=== PATIENT | female | born 1950 | race Caucasian/White ===

== ENCOUNTER 2020-06-17 18:21 | Observation (INO) ==
[2020-06-17] MEDS ORDERED: HYDROcodone/APAP 5/325MG TABLET PO ONE (18:42)
[2020-06-17] MEDS ORDERED: 0.9 % SODIUM CHLORIDE 1,000 ML IV ONE ×2 (18:42→20:17)
[2020-06-17] MEDS ORDERED: ONDANSETRON 4 MG ODT TABLET SL ONE (18:51)
--- NOTE | 2020-06-17 18:51 | Emergency Department Note ---
Fall HPI General Chief Complaint: Fall Stated Complaint: Fall Time Seen by Provider: 06/17/20 18:25 Source: patient and EMS Mode of arrival: EMS History of Present Illness HPI Narrative: Narrative: 69-year-old female with known MS fell after tripping over her cat this morning at 6:30 AM. She was getting up from the toilet when it happened. She states she briefly lost consciousness. Her tried to help her but as she developed pain in the back of her neck and her right shoulder her brought her in. She states she hurts everywhere but the pain is worst above-noted locations. She suffered a small laceration behind her right ear as well. Denies recent illness or fever, denies shortness of breath Related Data Home Medications Medication Instructions Recorded Confirmed clonazepam 2 mg PO DAILY 01/20/15 09/13/19 ondansetron 4 mg PO BID 01/20/15 09/13/19 trazodone 50 mg PO DAILY 01/20/15 06/17/20 atorvastatin 10 mg tablet 10 mg PO QPM tab 02/24/18 09/13/19 spironolactone 100 mg tablet 100 mg PO QDAY 02/24/18 09/13/19 tmnjoebxge-qbpmhbpzjmvoi-knrg 1 each PO BID 09/13/19 06/17/20 hydroxyzine HCl 25 mg PO Q4HP PRN 09/13/19 06/17/20 tizanidine 2 mg PO Q8H 09/13/19 06/17/20 bupropion HCl 150 mg PO DAILY 06/17/20 06/17/20 gabapentin 400 mg PO Q6 06/17/20 06/17/20 levothyroxine 150 mcg PO DAILY 06/17/20 06/17/20 tamsulosin 0.4 mg PO DAILY 06/17/20 06/17/20 Allergies Allergy/AdvReac Type Severity Reaction Status Date / Time dimethyl fumarate Allergy Severe FLUSHING, Verified 11/18/19 13:36 [From TECFIDERA] BREEN, hydroxyzine [HYDROXYZINE] Allergy Severe OD Verified 11/18/19 13:36 Sulfa (Sulfonamide Allergy Unknown Unknown Verified 11/18/19 13:36 Antibiotics) morphine AdvReac Agitated Verified 11/18/19 13:36 Review of Systems ROS ROS Narrative: Narrative: All systems ED: reviewed and negative except as stated. PFSH Narrative Patient History Narrative: Narrative: Medical/Surgical/Family History All Active Problems (Updated 06/17/20 @ 23:09 by Gerson Chow MD) Cellulitis (Acute) Fall (Acute) Abrasion (Acute) Fracture of head of humerus (Acute) Anterior dislocation of right shoulder (Acute) Complicated UTI (urinary tract infection) (Acute) Weakness (Acute) Acute confusion due to infection (Acute) Sleep apnea (Chronic) Port-A-Cath in place (Chronic ~2014) History of left knee replacement (Chronic) Hx of thyroid cancer (Chronic ~1984) Lack of bladder control (Chronic) History of stomach ulcers (Chronic) Muscular dystrophy (Chronic ~1989) Thyroid trouble (Chronic ~1984) Stroke (Chronic ~2016) Rheumatic fever (Chronic) Osteoporosis (Chronic) Migraines (Chronic) Joint pain (Chronic) High cholesterol (Chronic) Hypertension (Chronic) Congestive heart failure (Chronic ~2015) Depression (Chronic) Daytime sleepiness (Chronic) History of muscle pain (Chronic) Breast cancer (Chronic ~2014) Hx of blood clots (Chronic) Arthritis (Chronic) Anxiety (Chronic) Acid reflux (Chronic) Ankle sprain (Chronic) Foot sprain (Chronic) Syncope (Chronic) Upper respiratory infection (Chronic) Cough (Chronic) Insect bite (Chronic) Contusion of rib on right side (Chronic) Multiple sclerosis exacerbation (Chronic) Muscle cramping (Chronic) Viral syndrome (Chronic) Medical History Acid reflux (Chronic) Ankle sprain (Chronic) Anxiety (Chronic) Arthritis (Chronic) Breast cancer (Chronic ~2014) Congestive heart failure (Chronic ~2015) Contusion of rib on right side (Chronic) Cough (Chronic) Daytime sleepiness (Chronic) Depression (Chronic) Foot sprain (Chronic) High cholesterol (Chronic) History of muscle pain (Chronic) Chronic muscle pain. History of stomach ulcers (Chronic) Hx of blood clots (Chronic) Hx of thyroid cancer (Chronic ~1984) Hypertension (Chronic) Insect bite (Chronic) Joint pain (Chronic) Lack of bladder control (Chronic) Migraines (Chronic) Muscular dystrophy (Chronic ~1989) Osteoporosis (Chronic) Port-A-Cath in place (Chronic ~2014) Rheumatic fever (Chronic) Sleep apnea (Chronic) Stroke (Chronic ~2016) Syncope (Chronic) Thyroid trouble (Chronic ~1984) Upper respiratory infection (Chronic) Surgical History History of cholecystectomy (Chronic ~1986) History of hernia surgery (Chronic ~2000) History of hysterectomy (Chronic ~1982) History of left knee replacement (Chronic) Hx of cataract surgery (Chronic ~2004) Hx of shoulder surgery (Chronic ~2011) Hx of total mastectomy (Chronic ~2014) Family History Brother Arthritis Sister Cancer All 5 sisters have cancer. Daughter Lupus Social History Smoking Status: Current every day smoker Alcohol Intake Frequency: 2+ drinks per day Substance Use: does not use Exam Narrative Narrative: Narrative: Resting leaning more onto her left side. Conjunctive are clear sclerae white nonicteric. Extraocular movements are intact. Pupils are equal and reactive. No nasal discharge or congestion. Oropharynx with dry buccal mucosa. Tongue is midline. No dysarthria. Face is symmetrical. Neck is supple without lymphadenopathy thyromegaly. Heart is regular rate and rhythm no murmur appreciated. Lungs clear to auscultation bilaterally without wheezes rales rhonchi or respiratory distress. Abdomen soft nontender nondistended. Right shoulder exam shows tenderness really in the glenohumeral joint area anteriorly but I do not see any deformity of the shoulder arm elbow forearm. She has normal bilateral reclamation kettle tender. I do not see pedal edema. I do not see any acute focal neurologic deficits of the head or neck area There is a 4 cm long relatively superficial laceration behind her right ear. It is not full-thickness and does not require repair Course Vital Signs Vital signs: Vital Signs Temperature 100.3 F H 06/17/20 18:22 Pulse Rate 84 06/17/20 18:22 Respiratory Rate 16 06/17/20 18:22 Blood Pressure 163/93 06/17/20 18:22 Pulse Oximetry (%) 95 06/17/20 18:22 Temperature 100.3 F H 06/17/20 18:22 Pulse Rate 81 06/17/20 22:46 Respiratory Rate 18 06/17/20 22:46 Blood Pressure 179/90 06/17/20 22:46 Pulse Oximetry (%) 92 06/17/20 22:46 Procedures Orthopedic Joint Reduction Joint #1: Consent Obtained: verbal consent and written consent Time Out Performed: Yes Side: right Joint Reduction Location: shoulder Analgesia: procedural sedation Shoulder Technique Used (if applicable): traction/counter-traction and external rotation Post-reduction neuro exam: intact Post-reduction vascular: intact Post Reduction X-Ray Obtained: Yes Post Reduction X-Ray Results: reduced Splint Applied: Yes Patient Tolerated Procedure: other Additional Comments: Shoulder was unstable so required several attempts. Immobilizer applied Procedural Sedation Indication: fracture/dislocation reduction ASA Class: III Time of Last PO Intake: 16:00 Preparation: threat monitoring analyst applied, pulse oximeter, capnometry used, supplemental O2 applied, reversal agents at bedside, suction/airway equipment at bedside and IV secured Midazolam: IV Midazolam Dose: 1 Ketamine Dose: 50 IV Propofol Dose (mgs): 75 Complications: Respiratory Depression-Repositioning Required Interventions: oxygen applied and airway repositioned MDM MDM Narrative Medical decision making narrative: Narrative: We will give her some pain medicine and IV fluid. Check some laboratory and imaging. CT scan of the head and cervical spine showed no acute findings. X-ray of the right shoulder shows fracture dislocation of the humeral head. I discussed this with Dr. Sharma, orthopedist on-call and he advised me to reduce it if possible. She last ate approximately 4:00 PM and so we will have to wait till almost 10 PM so she is 6 hours without food prior to doing conscious sedation. I consented her to do a propofol Versed sedation for reduction- discussed with her the risks versus benefit Laboratory pain medicine and nausea medicine are ordered. Nursing staff got her up to go urinate on the bedside commode but she was too weak to stand-this is before getting any pain medicine. She is having some confusion as well as the weakness-concern for complicated UTI. Patient gives additional history that she is being treated with some aybv-bag-grsybrr medicine-not on antibiotic-for UTI symptoms She got some Dilaudid for pain-single dose and her oxygen saturations dropped down to 87%. I was very concerned about sedating her after this so I contacted YULIANA Hernandez on-call. He advised me to do a ketamine sedation instead of just propofol as this would be better from a respiratory standpoint We accomplished the procedural sedation and reduction of the anterior shoulder dislocation-however was difficult as the shoulder was unstable and popped out twice. Placed a shoulder immobilizer. Unfortunately the patient will need to come in because she is unable to stand, is too weak to go home. Briefly discussed with Dr. Sharma; he advised me to admit to hospitalist and he would see in the morning. Started Rocephin for UTI Discussed with Dr. Hammer, our hospitalist. He agreed to accept the patient further care and evaluation in the hospital Lab Data Lab results reviewed: Yes I reviewed the patient's lab results. Result diagrams: 06/17/20 20:23 Labs: Lab Results 06/17/20 06/17/20 06/17/20 Range/Units 20:23 20:30 20:40 WBC 10.0 (4.5-11.0) K/mcL RBC 4.38 (4.00-5.20) M/mcL Hgb 13.3 (12.0-15.0) g/dL Hct 40.9 (36.0-48.0) % POC Hct 37 (36-48) % MCV 93.4 (80.0-100.0) fL MCH 30.4 (26.0-34.0) pg MCHC 32.5 (31.0-36.0) g/dL RDW 14.9 H (11.5-14.5) % Plt Count 162 (140-440) K/mcL MPV 12.5 H (7.4-10.4) fL Neut % (Auto) 73.5 (38.0-78.0) % Lymph % (Auto) 14.4 L (15.0-49.0) % [place] % (Auto) 10.4 (1.0-12.0) % Eos % (Auto) 1.2 (0.0-7.0) % Baso % (Auto) 0.5 (0.0-2.0) % Lymph # (Auto) 1.44 L (1.50-4.80) K/mcL [place] # (Auto) 1.04 H (0.10-0.90) K/mcL Eos # (Auto) 0.12 (0.00-0.70) K/mcL Baso # (Auto) 0.05 (0.00-0.20) K/mcL Absolute Neutrophils 7.32 (1.80-8.00) K/mcL POC Sodium 139 (133-145) mEq/L POC Potassium 3.8 (3.3-5.1) mEql/L POC Chloride 106 (96-108) mEq/L POC Total CO2 24 (22-30) mmol/L POC BUN 16 (6-20) mg/dL POC Creatinine 0.6 (0.6-1.2) mg/dL POC Glucose 141 H (70-105) mg/dL POC WB Ioniz Calcium 1.15 L (1.16-1.32) mmEq/L Magnesium 1.9 (1.6-2.5) mg/dL Urine Color Martha Urine Appearance Clear (Clear) Urine pH 5.0 (5.0-9.0) Ur Specific [place] 1.018 (1.000-1.035) Urine Protein Negative (Negative) mg/dL Urine Glucose (UA) Negative (Negative) mg/dL Urine Ketones Negative (Negative) mg/dL Urine Occult Blood 0.03 (Negative) mg/dL Urine Nitrate Pos A (Negative) Urine Bilirubin Negative (Negative) mg/dL Urine Urobilinogen 2.0 A mg/dL Ur Leukocyte Esterase Negative (Negative) /ug Urine RBC 2 (0-3) /hpf Urine WBC 29 H (0-4) /hpf Ur Squamous Epith Cells 2 (0-4) /hpf Urine Bacteria Few A (0) /hpf Urine Mucus Few A (None) /hpf Ur Culture Indicated? yes Radiology Data Radiology results reviewed: Yes I reviewed the patient's radiology results. Discharge Plan Patient/Caregiver Discharge Instructions Pt seen by CARE MANAGEMENT SPECIALIST/PA only: No Clinical Impression: Abrasion, Complicated UTI (urinary tract infection), Weakness, Acute confusion due to infection Fall Qualifiers: Encounter type: initial encounter Qualified Code(s): W19.XXXA - Unspecified fall, initial encounter Fracture of head of humerus Qualifiers: Encounter type: initial encounter Fracture type: closed Laterality: right Qualified Code(s): S42.291A - Other displaced fracture of upper end of right humerus, initial encounter for closed fracture Anterior dislocation of right shoulder Qualifiers: Encounter type: initial encounter Qualified Code(s): S43.014A - Anterior dislocation of right humerus, initial encounter Patient Disposition: Xfer As Inpt ([facility]) Condition: Fair Follow up with: Travon Sharma MD [Physician] - Nadia Naik MD [Primary Care Provider] - Prescriptions: No Action spironolactone 100 mg tablet 100 mg PO QDAY RF: 0 atorvastatin 10 mg tablet 10 mg PO QPM RF: 0 ondansetron 4 MG tablet,disintegrating 4 mg PO TID RF: 0 trazodone 50 MG tablet 50 mg PO DAILY RF: 0 clonazepam 2 MG tablet,disintegrating 2 mg PO BID RF: 0 hydroxyzine HCl 50 MG tablet 25 mg PO Q4HP PRN (Reason: Anxiety) RF: 0 exsgctacfv-[id number]-oxkl 1 EACH capsule 1 each PO BID RF: 0 tizanidine 2 MG tablet 2 mg PO Q8H RF: 0 gabapentin 400 mg capsule 400 mg PO Q6 RF: 0 tamsulosin 0.4 mg capsule 0.4 mg PO DAILY RF: 0 levothyroxine 150 mcg tablet 150 mcg PO DAILY RF: 0 bupropion HCl 150 mg tablet extended release 24 hr 150 mg PO DAILY RF: 0
[2020-06-17] MEDS ORDERED: PROPOFOL 200 MG/20 ML VIAL IV ONE (19:54)
[2020-06-17] MEDS ORDERED: MIDAZOLAM 2 MG/2 ML VIAL IV ONE (19:54)
[2020-06-17] MEDS ORDERED: diphenhydrAMINE 50 MG/ML VIAL IV ONE (19:55)
[2020-06-17] MEDS ORDERED: ONDANSETRON 4 MG/2 ML VIAL IV ONE (20:17)
[2020-06-17] MEDS ORDERED: HYDROmorphone 0.5 MG/0.5 ML SYRINGE IV PRN (20:17)
[2020-06-17 20:55] LABS: POC Blood Urea Nitrogen 16 mg/dL (6-20); POC CO2 24 mmol/L (22-30); POC Calcium, Ionized 1.15 mmEq/L (1.16-1.32); POC Chloride 106 mEq/L (96-108); POC Creatinine 0.6 mg/dL (0.6-1.2); POC Glucose, Random 141 mg/dL (70-105); POC Hematocrit 37 % (36-48); POC Potassium 3.8 mEql/L (3.3-5.1); POC Sodium 139 mEq/L (133-145)
[2020-06-17 20:59] LABS: Basophils # (Auto) 0.05 K/mcL (0.00-0.20); Basophils % (Auto) 0.5 % (0.0-2.0); Eosinophils # (Auto) 0.12 K/mcL (0.00-0.70); Eosinophils % (Auto) 1.2 % (0.0-7.0); Hematocrit 40.9 % (36.0-48.0); Hemoglobin 13.3 g/dL (12.0-15.0); Lymphocytes # (Auto) 1.44 K/mcL (1.50-4.80); Lymphocytes % (Auto) 14.4 % (15.0-49.0); Mean Cell Volume 93.4 fL (80.0-100.0); Mean Corpuscular HGB Conc 32.5 g/dL (31.0-36.0); Mean Platelet Volume 12.5 fL (7.4-10.4); Monocytes # (Auto) 1.04 K/mcL (0.10-0.90); Monocytes % (Auto) 10.4 % (1.0-12.0); Neutrophils % (Auto) 73.5 % (38.0-78.0); Platelet Count 162 K/mcL (140-440); RBC 4.38 M/mcL (4.00-5.20); Red Cell Distribution Width 14.9 % (11.5-14.5)
[2020-06-17] MEDS ORDERED: KETAMINE 10 MG/ML ML IV ONE (21:51)
[2020-06-17] MEDS ORDERED: KETAMINE HCL 50 MG/ML ML ONE (22:07)
[2020-06-17 22:21] LABS: Appearance,Urine CLEAR (Clear); Bacteria,Urine FEW /hpf (0); Bilirubin,Urine Negative (Negative); Color,Urine AMBER; Culture Indicated,Urine yes; Glucose,Urine (UA) Negative (Negative); Ketones,Urine Negative (Negative); Leukocyte Esterase,Urine Negative /ug (Negative); Mucus,Urine FEW /hpf; Nitrate,Urine POS (Negative); Protein,Urine Negative (Negative); Specific Gravity,Urine 1.018 (1.000-1.035); Urine Blood 0.03 mg/dL (Negative); Urine RBC 2 /hpf (0-3); Urine Squamous Epithelial Cell 2 /hpf (0-4); Urine WBC 29 /hpf (0-4)
[2020-06-17] MEDS ORDERED: cefTRIAXone 1 GM VIAL IV ONE (22:32)
--- NOTE | 2020-06-17 23:13 | Internal Med History&Physical ---
HPI History of Present Illness Patient information: Note initiated : 06/17/20 at 11:11 pm Service Date, if different from initiated Date: [] Patient: Marlen Rodriges a 69 y/o F admitted on for Fall. Chief Complaint: [] History of present illness: Ms. Rodriges is a 69 year old F with a history of MS/anxiety/recurrent UTI/chronic pain who presented to the ER following a fall while she was trying to get off the commode. According to her the Trip to light clamp and closed the bathroom door and while trying to get off she got dizzy and landed on the bathroom hook and fell down. She called her Santino for help and was brought into the ER. Initial work-up was consistent with right shoulder fracture/dislocation. Patient underwent reduction in the ER and subsequently orthopedic was consulted. UA revealed pyuria for which she was started on antibiotics. Hospitalist service was consulted At the time of my evaluation patient is fairly anxious and in pain. She is under the effect of opioids drowsy and lethargic but was able to answer most of the questions and endorsed to history as above. She frequently dozes off but awakens response. No family members present. Initial history was obtained from review of prior medical records and from ER physician. Patient endorses to frequent spells of dizziness and visual blurring associated with MS. She denies recurrent falls endorses to general debility from progressing MS. She follows up with Dr. Joseph neurology at [facility] and receives infusion for MS All that patient denies diarrhea, fever, headache, photophobia, chills or cough. Review of systems 10 point review system was performed and is negative except for ones discussed above PFSH PFSH All Active Problems (Updated 06/17/20 @ 23:09 by Gerson Chow MD) Cellulitis (Acute) Fall (Acute) Abrasion (Acute) Fracture of head of humerus (Acute) Anterior dislocation of right shoulder (Acute) Complicated UTI (urinary tract infection) (Acute) Weakness (Acute) Acute confusion due to infection (Acute) Sleep apnea (Chronic) Port-A-Cath in place (Chronic ~2014) History of left knee replacement (Chronic) Hx of thyroid cancer (Chronic ~1984) Lack of bladder control (Chronic) History of stomach ulcers (Chronic) Muscular dystrophy (Chronic ~1989) Thyroid trouble (Chronic ~1984) Stroke (Chronic ~2016) Rheumatic fever (Chronic) Osteoporosis (Chronic) Migraines (Chronic) Joint pain (Chronic) High cholesterol (Chronic) Hypertension (Chronic) Congestive heart failure (Chronic ~2015) Depression (Chronic) Daytime sleepiness (Chronic) History of muscle pain (Chronic) Breast cancer (Chronic ~2014) Hx of blood clots (Chronic) Arthritis (Chronic) Anxiety (Chronic) Acid reflux (Chronic) Ankle sprain (Chronic) Foot sprain (Chronic) Syncope (Chronic) Upper respiratory infection (Chronic) Cough (Chronic) Insect bite (Chronic) Contusion of rib on right side (Chronic) Multiple sclerosis exacerbation (Chronic) Muscle cramping (Chronic) Viral syndrome (Chronic) Medical History Acid reflux (Chronic) Ankle sprain (Chronic) Anxiety (Chronic) Arthritis (Chronic) Breast cancer (Chronic ~2014) Congestive heart failure (Chronic ~2015) Contusion of rib on right side (Chronic) Cough (Chronic) Daytime sleepiness (Chronic) Depression (Chronic) Foot sprain (Chronic) High cholesterol (Chronic) History of muscle pain (Chronic) Chronic muscle pain. History of stomach ulcers (Chronic) Hx of blood clots (Chronic) Hx of thyroid cancer (Chronic ~1984) Hypertension (Chronic) Insect bite (Chronic) Joint pain (Chronic) Lack of bladder control (Chronic) Migraines (Chronic) Muscular dystrophy (Chronic ~1989) Osteoporosis (Chronic) Port-A-Cath in place (Chronic ~2014) Rheumatic fever (Chronic) Sleep apnea (Chronic) Stroke (Chronic ~2016) Syncope (Chronic) Thyroid trouble (Chronic ~1984) Upper respiratory infection (Chronic) Surgical History History of cholecystectomy (Chronic ~1986) History of hernia surgery (Chronic ~2000) History of hysterectomy (Chronic ~1982) History of left knee replacement (Chronic) Hx of cataract surgery (Chronic ~2004) Hx of shoulder surgery (Chronic ~2011) Hx of total mastectomy (Chronic ~2014) Family History Brother Arthritis Sister Cancer All 5 sisters have cancer. Daughter Lupus Social History (Updated 03/31/18 @ 18:08 by Olamide Sinclair RADIATION SAFETY OFFICER) marital status: smoking status: Current every day smoker alcohol intake frequency: 2+ drinks per day substance use type: does not use MEDS/ALLERGIES Home Medications and Allergies Home Medications Medication Instructions Recorded Confirmed Type clonazepam 2 mg PO BID 01/20/15 06/18/20 History ondansetron 4 mg PO TID 01/20/15 06/18/20 History trazodone 50 mg PO DAILY 01/20/15 06/18/20 History atorvastatin 10 mg tablet 10 mg PO QPM tab 02/24/18 06/18/20 History spironolactone 100 mg tablet 100 mg PO QDAY 02/24/18 06/18/20 History ngvkbkegqk-fmarakeswhdki-zwlm 1 each PO BID 09/13/19 06/18/20 History tizanidine 2 mg PO Q8H 09/13/19 06/18/20 History bupropion HCl 150 mg PO DAILY 06/17/20 06/18/20 History gabapentin 400 mg PO Q6 06/17/20 06/18/20 History levothyroxine 150 mcg PO DAILY 06/17/20 06/18/20 History tamsulosin 0.4 mg PO DAILY 06/17/20 06/18/20 History hydroxyzine HCl 10 - 20 mg PO Q4HP PRN 06/18/20 06/18/20 History Allergies Allergy/AdvReac Type Severity Reaction Status Date / Time hydroxyzine [HYDROXYZINE] Allergy Severe OD Verified 11/18/19 13:36 Sulfa (Sulfonamide Allergy Unknown Unknown Verified 11/18/19 13:36 Antibiotics) dimethyl fumarate AdvReac Intermediate FLUSHING, Verified 06/18/20 07:49 [From TECFIDERA] BREEN, morphine AdvReac Mild Agitated Verified 06/18/20 07:49 EXAM Constitutional Vitals: Temp Pulse Resp BP Pulse Ox 100.3 F H 81 18 179/90 92 06/17/20 18:22 06/17/20 22:46 06/17/20 22:46 06/17/20 22:46 06/17/20 22:46 Anxious lethargic and drowsy Head normocephalic Oral cavity moist No ear nose discharge Eye movement symmetrical Neck supple no lymphadenopathy S1-S2 regular Nonlabored breathing Nondistended nontender abdomen Right shoulder fracture in sling lower extremity no cyanosis clubbing or joint swelling Skin no suspicious lesion Psych anxious but no hallucination Neuro GCS 11 DATA Data Completed and Pending Labs: Labs from last 24 hours 06/17/20 06/17/20 06/17/20 20:40 20:30 20:23 WBC 10.0 RBC 4.38 Hgb 13.3 Hct 40.9 POC Hct 37 MCV 93.4 MCH 30.4 MCHC 32.5 RDW 14.9 H Plt Count 162 MPV 12.5 H Neut % (Auto) 73.5 Lymph % (Auto) 14.4 L [place] % (Auto) 10.4 Eos % (Auto) 1.2 Baso % (Auto) 0.5 Lymph # (Auto) 1.44 L [place] # (Auto) 1.04 H Eos # (Auto) 0.12 Baso # (Auto) 0.05 Absolute Neutrophils 7.32 POC Sodium 139 POC Potassium 3.8 POC Chloride 106 POC Total CO2 24 POC BUN 16 POC Creatinine 0.6 POC Glucose 141 H POC WB Ioniz Calcium 1.15 L Magnesium 1.9 Urine Color [place] Urine Appearance Clear Urine pH 5.0 Ur Specific [place] 1.018 Urine Protein Negative Urine Glucose (UA) Negative Urine Ketones Negative Urine Occult Blood 0.03 Urine Nitrate Pos A Urine Bilirubin Negative Urine Urobilinogen 2.0 A Ur Leukocyte Esterase Negative Urine RBC 2 Urine WBC 29 H Ur Squamous Epith Cells 2 Urine Bacteria Few A Urine Mucus Few A Ur Culture Indicated? yes A/P Narrative A/P Narrative: * Right humerus fracture/dislocation. Status post reduction. Orthopedic consulted. Will undergo additional interventions per orthopedics * Pain management on as needed opioids * Complicated UTI-continue antibiotic coverage. De-escalate based on cultures * AMS-secondary to complicated UTI/opioid and sedatives. Continue monitoring * History of MS-follows up with Dr. Mar neurology. On tizanidine/gabapentin and schedule infusions as scheduled with neurology * HTN-continue home dose of spironolactone * Anxiety continue bupropion/clonazepam * Hypothyroidism continue thyroxine * HLD on statin * Full code * Prophylaxis Heparin Plan * Observation admit * Orthopedic consult * Antibiotic coverage * Pain management * Pre-existing medical issues management home medications * PT OT nutrition support * Discharge planning PLAN * Obs Admit Time Spent With Patient Time: Total time spent is greater than 50% in coordination of care (as documented) at patient's floor/unit and/or counseling patient:
[2020-06-18] MEDS ORDERED: POTASSIUM CHLORIDE 40 MEQ in DEXTROSE 5% IN WATER 500 ML IV PRN (00:39)
[2020-06-18] MEDS ORDERED: ACETAMINOPHEN 650 MG/65 ML BAG IV PRN (00:39)
[2020-06-18] MEDS ORDERED: ONDANSETRON 4 MG/2 ML VIAL IV PRN (00:39)
[2020-06-18] MEDS ORDERED: POLYETHYLENE GLYCOL 3350 17 GM PACKET PO PRN (00:39)
[2020-06-18] MEDS ORDERED: ACETAMINOPHEN 325 MG TABLET PO PRN (00:39)
[2020-06-18] MEDS ORDERED: ONDANSETRON 4 MG ODT TABLET SL PRN (00:39)
[2020-06-18] MEDS ORDERED: TIZANIDINE 2 MG PO SCH (00:39)
[2020-06-18] MEDS ORDERED: HYDROXYZINE HCL 25 MG PO PRN (00:39)
[2020-06-18] MEDS ORDERED: METOPROLOL TARTRATE 5 MG/5 ML VIAL IV PRN (00:39)
[2020-06-18] MEDS ORDERED: MAGNESIUM SULFATE 2 GM/50 ML BAG IV PRN (00:39)
[2020-06-18] MEDS ORDERED: MELATONIN 3 MG TABLET PO PRN (00:39)
[2020-06-18] MEDS ORDERED: POTASSIUM CHLORIDE 20 MEQ PACKET PO PRN (00:39)
[2020-06-18] MEDS ORDERED: hydrALAZINE 20 MG/ML VIAL IV PRN (00:39)
[2020-06-18] MEDS ORDERED: cefTRIAXone 2 GM in DEXTROSE 5% IN WATER 50 ML IV SCH ×2 (00:39→16:00)
[2020-06-18] MEDS ORDERED: BISACODYL 10 MG SUPP.RECT PR PRN (00:39)
[2020-06-18] MEDS: 0.9 % SODIUM CHLORIDE 1,000 ML IV SCH ×2 (00:40→06:12)
[2020-06-18] MEDS ORDERED: GABAPENTIN 300 MG CAPSULE ONE (01:09)
[2020-06-18] MEDS ORDERED: GABAPENTIN 100 MG CAPSULE PO ONE (01:09)
[2020-06-18] MEDS ORDERED: cefTRIAXone 1 GM VIAL ONE (01:10)
[2020-06-18] MEDS: GABAPENTIN 400 MG CAPSULE PO SCH ×3 (01:12→12:57)
[2020-06-18] MEDS ORDERED: 0.9 % SODIUM CHLORIDE 10 ML SYRINGE IV SCH (06:00)
[2020-06-18] MEDS: HYDROmorphone 0.5 MG/0.5 ML SYRINGE IV PRN ×2 (06:13→08:54)
[2020-06-18] MEDS ORDERED: HYDROmorphone 0.5 MG/0.5 ML SYRINGE ONE (06:24)
[2020-06-18 06:45] LABS: Basophils # (Auto) 0.04 K/mcL (0.00-0.20); Basophils % (Auto) 0.4 % (0.0-2.0); Eosinophils % (Auto) 1.1 % (0.0-7.0); Hematocrit 35.1 % (36.0-48.0); Hemoglobin 11.3 g/dL (12.0-15.0); Lymphocytes # (Auto) 2.07 K/mcL (1.50-4.80); Lymphocytes % (Auto) 22.8 % (15.0-49.0); Mean Cell Volume 92.6 fL (80.0-100.0); Mean Corpuscular HGB Conc 32.2 g/dL (31.0-36.0); Mean Platelet Volume 12.5 fL (7.4-10.4); Monocytes # (Auto) 1.32 K/mcL (0.10-0.90); Monocytes % (Auto) 14.5 % (1.0-12.0); Neutrophils % (Auto) 61.2 % (38.0-78.0); Platelet Count 143 K/mcL (140-440); RBC 3.79 M/mcL (4.00-5.20); Red Cell Distribution Width 14.9 % (11.5-14.5); WBC 9.1 K/mcL (4.5-11.0)
[2020-06-18 07:16] LABS: ALT/SGPT 8 U/L (<40); AST/SGOT 15 U/L (<32); Albumin 3.8 gm/dL (3.2-5.2); Albumin/Globulin Ratio 1.8 (1.0-2.3); Alkaline Phosphatase 106 U/L (39-117); Bilirubin,Direct < 0.2 mg/dL (<0.3); Bilirubin,Total 0.4 mg/dL (0.1-1.0); Blood Urea Nitrogen 12 mg/dL (8-23); Calcium 8.8 mg/dL (8.6-10.4); Carbon Dioxide 24 mmol/L (22-30); Chloride 101 mmol/L (96-108); Globulin 2.1 gm/dL (2.2-3.7); Glomerular Filtration Rate 94; Glucose 121 mg/dL (70-105); Lactate Dehydrogenase 186 U/L (135-225); Phosphorous 2.6 mg/dL (2.5-4.5); Triglycerides 56 mg/dL (<150); Uric Acid 3.9 mg/dL (2.5-8.0)
[2020-06-18] MEDS ORDERED: LEVOTHYROXINE 150 MCG TABLET PO SCH (07:30)
--- NOTE | 2020-06-18 08:20 | Internal Med Progress Note ---
SUBJECTIVE Subjective Patient information: Note initiated : 06/18/20 at 8:17 am Service Date, if different from initiated Date: [] Patient: Marlen Rodriges a 69 y/o F admitted on 06/18/20 for Fall. Chief Complaint: [] Ms. Rodriges is a 69 year old F with a history of MS/anxiety/recurrent UTI/chronic pain who presented to the ER following a fall while she was trying to get off the commode. According to her the Trip to light clamp and closed the bathroom door and while trying to get off she got dizzy and landed on the bathroom hook and fell down. She called her Santino for help and was brought into the ER. Initial work-up was consistent with right shoulder fracture/dislocation. Patient u nderwent reduction in the ER and subsequently orthopedic was consulted. UA revealed pyuria for which she was started on antibiotics. Hospitalist service was consulted At the time of my evaluation patient is fairly anxious and in pain. She is under the effect of opioids drowsy and lethargic but was able to answer most of the questions and endorsed to history as above. She frequently dozes off but awakens response. No family members present. Initial history was obtained from review of prior medical records and from ER physician. Patient endorses to frequent spells of dizziness and visual blurring associated with MS. She denies recurrent falls endorses to general debility from progress ing MS. She follows up with Dr. Joseph neurology at [facility] and receives infusion for MS All that patient denies diarrhea, fever, headache, photophobia, chills or cough. 1/2-no overnight events. Patient doing well. Pain is well controlled. Await orthopedic consult. Minimal anxiety. Requesting bedside commode. Reaffirmed that she should call nursing staff and avoid getting out of bed without assistance due to fall risk and subsequent injuries. Constitutional Vitals: Vital Signs Temp Pulse Resp BP Pulse Ox 99.7 F H 98 H 18 138/77 90 06/18/20 08:00 06/18/20 08:00 06/18/20 08:00 06/18/20 08:00 06/18/20 08:00 Period Temp Pulse Resp BP Sys/Lou Pulse Ox Last 24 Hr 98.3 F-100.3 F 74-98 10-28 125-202/68-131 90-96 Intake and Output 01/01/21 01/02/21 01/02/21 21:59 05:59 13:59 Intake Total 1000 1000 950 Output Total 201 201 Balance 1000 799 749 Weight 60.328 kg drowsy but respond to commands Nonlabored breathing Minimal anxiety Right shoulder sling Intake & Output: Intake & Output 06/17/20 06/18/20 06/18/20 21:59 05:59 13:59 Intake Total 1000 1000 950 Output Total 201 201 Balance 1000 799 749 Weight 60.328 kg Intake: IV 1000 1000 950 Sodium Chloride 0.9% 1,000 ml @ 1000 1000 950 50 mls/hr IV .Q20H NILDA Rx#: [id number] Oral 0 Output: Void Amount 200 200 # of times incontinent of urine 1 1 Other: Urine Appearance Cloudy Cloudy Urine Color Light Martha Light Martha Urine Odor Foul Foul OBJ DATA Labs CBC & Chem 7: 06/18/20 05:37 06/18/20 05:37 Labs: Abnormal Lab Results 06/18/20 06/18/20 06/17/20 05:37 05:37 20:40 RBC 3.79 L Hgb 11.3 L Hct 35.1 L RDW 14.9 H MPV 12.5 H Lymph % (Auto) [place] % (Auto) 14.5 H Lymph # (Auto) [place] # (Auto) 1.32 H Glucose 121 H POC Glucose 141 H POC WB Ioniz Calcium 1.15 L Globulin 2.1 L Urine Nitrate Urine Urobilinogen Urine WBC Urine Bacteria Urine Mucus 06/17/20 06/17/20 20:30 20:23 RBC Hgb Hct RDW 14.9 H MPV 12.5 H Lymph % (Auto) 14.4 L [place] % (Auto) Lymph # (Auto) 1.44 L [place] # (Auto) 1.04 H Glucose POC Glucose POC WB Ioniz Calcium Globulin Urine Nitrate Pos A Urine Urobilinogen 2.0 A Urine WBC 29 H Urine Bacteria Few A Urine Mucus Few A Meds: Medications Acetaminophen (Tylenol) 650 mg PO Q4-6HP PRN; Protocol PRN Reason: Per Pain Protocol/Fever > 101 Acetaminophen/Butalbital/Caffeine (Fioricet) 1 tab PO BID [facility] Atorvastatin Calcium (Lipitor) 10 mg PO QPM NILDA Bisacodyl (Dulcolax) 10 mg HI Q2-3DAYS PRN PRN Reason: Constipation Bupropion HCl (Wellbutrin Xl) 150 mg PO DAILY [facility] Clonazepam (Klonopin) 2 mg PO BID [facility] Docusate Sodium (Colace) 100 mg PO BID [facility] Gabapentin (Neurontin) 400 mg PO Q6 [facility] Last Admin: 06/18/20 01:12 Dose: Not Given Documented by: Heparin Sodium (Porcine) (Heparin) 5,000 unit SQ Q12 [facility] Hydralazine HCl (Apresoline) 10 mg IV Q4-6HP PRN PRN Reason: Hypertension Hydromorphone HCl (Dilaudid) 0.25 - 0.5 mg IV Q4HP PRN; Protocol PRN Reason: Per Pain Protocol Last Admin: 06/18/20 06:13 Dose: 0.5 mg Documented by: Potassium Chloride 40 meq/ (Dextrose) 520 mls @ 130 mls/hr IV UD PRN PRN Reason: K+ = or < 3.5 Acetaminophen (Ofirmev) 650 mg in 65 mls @ 130 mls/hr IV Q6HP PRN; Protocol PRN Reason: Per Pain Protocol/Fever > 101 Magnesium Sulfate (Magnesium Sulfate) 2 gm in 50 mls @ 50 mls/hr IV UD PRN PRN Reason: MG = or < 1.7 Sodium Chloride (Sodium Chloride 0.9%) 1,000 mls @ 50 mls/hr IV .Q20H [facility] Stop: 06/20/20 12:38 Last Admin: 06/18/20 06:12 Dose: 50 mls/hr Documented by: Ceftriaxone Sodium 2 gm/ (Dextrose) 50 mls @ 100 mls/hr IV Q24H [facility]; Protocol Iron Carb/Multivit/[place]/Folic Acid (Multivitamin W/Minerals) 1 tab PO DAILY [facility] Levothyroxine Sodium (Synthroid) 150 mcg PO QAMAC [facility] Melatonin (Melatonin 3mg Tablet) 3 mg PO HSP PRN PRN Reason: Insomnia Metoprolol Tartrate (Lopressor) 5 mg IV Q5M PRN PRN Reason: Heart Rate > 140 bpm Non-Formulary Medication (Hydroxyzine Hcl) 25 mg PO Q4HP PRN PRN Reason: Anxiety Ondansetron HCl (Zofran Odt) 4 mg SL Q4-6HP PRN; Protocol PRN Reason: Nausea And Vomiting Ondansetron HCl (Zofran) 4 mg IV Q4-6HP PRN; Protocol PRN Reason: Nausea And Vomiting Polyethylene Glycol (Miralax) 17 gm PO DAILYP PRN PRN Reason: Constipation Potassium Chloride (Klor-Con) 40 meq PO DAILYP PRN PRN Reason: K+ < 3.5 Senna/Docusate Sodium (Senna Plus Tablet) 1 tab PO HS [facility] Sodium Chloride (Saline Flush) 10 ml IV Q8 [facility] Last Admin: 06/18/20 06:14 Dose: Not Given Documented by: Spironolactone (Aldactone) 100 mg PO DAILY [facility] Tamsulosin HCl (Flomax) 0.4 mg PO DAILY [facility] Tizanidine HCl (Zanaflex) 2 mg PO TID NILDA Trazodone HCl (Desyrel) 50 mg PO DAILY [facility] A/P Narrative A/P Narrative: * Right humerus fracture/dislocation. Status post reduction. Orthopedic consult awaited this morning. Will undergo additional interventions per orthopedics * Pain management well controlled on as needed opioids * Complicated UTI-continue Rocephin and de-escalate based on cultures * AMS-secondary to complicated UTI/opioid and sedatives. Continue monitoring * History of MS-follows up with Dr. Mar neurology. On tizanidine/gabapentin and schedule infusions as scheduled with neurology * HTN-continue home dose of spironolactone * Anxiety continue bupropion/clonazepam * Hypothyroidism continue thyroxine * HLD on statin * Full code * Prophylaxis Heparin Plan * Await orthopedic consult * Rocephin * Continue pain management * Continue pre-existing medical issues management home medications * PT OT nutrition support * Discharge planning PLAN * Obs Admit Time Spent With Patient Time: Total time spent is greater than 50% in coordination of care (as documented) at patient's floor/unit and/or counseling patient: QUALITY Stroke Symptom Onset Unknown: No VTE Deep Vein Thrombosis/Pulmonary Embolism Present on Admission: No
[2020-06-18] MEDS ORDERED: SPIRONOLACTONE 25 MG TABLET PO SCH (09:00)
[2020-06-18] MEDS ORDERED: MULTIVIT,THER IRON,CA,FA & MIN 1 TABLET PO SCH (09:00)
[2020-06-18] MEDS ORDERED: buPROPion 150 MG TAB.XL.24H PO SCH (09:00)
[2020-06-18] MEDS ORDERED: tiZANidine 4 MG TABLET PO SCH (09:00)
[2020-06-18] MEDS ORDERED: BUTALB/ACETAMINOPHEN/CAFFEINE 1 TABLET PO SCH (09:00)
[2020-06-18] MEDS ORDERED: DOCUSATE SODIUM 100 MG CAPSULE PO SCH (09:00)
[2020-06-18] MEDS ORDERED: TAMSULOSIN 0.4 MG CAPSULE PO SCH (09:00)
[2020-06-18] MEDS ORDERED: ONDANSETRON (PP) 4 MG TABLET PO SCH (09:00)
[2020-06-18] MEDS ORDERED: HEPARIN 5,000 UNIT/ML VIAL SQ SCH (09:00)
[2020-06-18] MEDS ORDERED: clonazePAM 1 MG TABLET PO SCH (09:00)
[2020-06-18] MEDS ORDERED: traZODone HCL 50 MG TABLET PO SCH (09:00)
--- NOTE | 2020-06-18 09:14 | XRay Report ---
HISTORY: Fell with right shoulder injury FINDINGS: The humeral head is dislocated anteriorly and medially. There is a comminuted fracture involving the tuberosities. The tuberosities are displaced laterally and inferiorly. The scapula appears intact. The right lung is clear. There is a Port-A-Cath placed through the right internal jugular vein into the superior vena cava. IMPRESSION: Anterior fracture dislocation of the right humerus Interpreted and Authenticated by: Tommie Starks 06/18/20
--- NOTE | 2020-06-18 09:18 | Cat Scan Report ---
History: Fell, head injury, prior stroke, multiple sclerosis and history of thyroid cancer TECHNIQUE: The brain was imaged without contrast at 2.5 mm intervals. Radiation exposure was limited using dose reduction technology. FINDINGS: There is moderate white matter disease with patchy areas of decreased attenuation in the centrum semiovale in the frontal and parietal lobes bilaterally. There are small old lacunar infarcts with encephalomalacia involving the head of the right caudate nucleus and mid body of the left caudate nucleus. No cortical infarct is detected. There is no hemorrhage and no evidence of malignancy on this nonenhanced study. Patient has generalized atrophy. The ventricles are prominent but proportionate to the atrophy. No abnormal extra-axial fluid collection is present. Bone windows show no fracture or metastasis. Comparison with the prior head CT done on 01/16/13 shows there has been progression of the atrophy, white matter disease and the lacunar infarcts were not present in 2012. IMPRESSION: Small old lacunar infarcts in the caudate nuclei bilaterally Moderate white matter disease which could be due to age-related ischemia or degeneration, multiple sclerosis or a combination of the two. No evidence of acute brain injury Dr. Chow was called with the results Interpreted and Authenticated by: Tommie Starks 06/18/20
--- NOTE | 2020-06-18 09:23 | Cat Scan Report ---
History: Fell and neck injury TECHNIQUE: The neck was imaged without contrast at 2.5 mm intervals from the skull base through the thoracic inlet. Sagittal and coronal reformats were created. The radiation exposure was limited using dose reduction technology. FINDINGS: The cervico-occipital junction is normal. There is no fracture or evidence of acute spinal injury. There is chronic advanced degenerative changes. Severe disc space narrowing is present at C5-6 and there is moderately severe disc space narrowing at C4-5 and C6-7. There are spurs protruding into the central canal from the posterior border of the discs at C5-6 and C6-7 resulting in moderate spinal canal stenosis. There is also spurring of the uncinate processes and arthritis in the facets throughout the mid and lower neck. There is severe stenosis of the right-sided neural foramen at C6-7 and bilaterally at C5-6. There is no paraspinal mass or hematoma. Patient has a central venous catheter placed through the right internal jugular vein extending into the superior vena cava. IMPRESSION: No fracture Spinal canal stenosis and neural foraminal stenosis at C5-6 and C6-7 Dr. Chow was called with results Interpreted and Authenticated by: Tommie Starks 06/18/20
--- NOTE | 2020-06-18 09:27 | XRay Report ---
HISTORY: Post reduction of dislocated right shoulder FINDINGS: The humeral head is now normally aligned with the glenoid. The fractured tuberosities are now in closer alignment with the humerus but remain rotated and displaced inferiorly and laterally. There is mild arthritis with small spurs on both sides of the glenohumeral joint The acromioclavicular joint is normal. IMPRESSION: Good alignment of the humerus with the glenoid following closed reduction Interpreted and Authenticated by: Tommie Starks 06/18/20
--- NOTE | 2020-06-18 11:53 | Discharge Summary ---
Discharge Provider Provider Patient information: Note initiated : 06/18/20 at 11:50 am Service Date, if different from initiated Date: [] Patient: Marlen Rodriges a 69 y/o F admitted on 06/18/20 for Fall. discharge diagnosis * Right humerus fracture/dislocation. Status post reduction. Orthopedics recommend surgical intervention on Saturday. Patient will return for surgery. * Pain management managed on opioids * Complicated UTI-continue oral antibiotic for additional 5 days * AMS-secondary to complicated UTI/opioid and sedatives. Clinically resolved * History of MS-follows up with Dr. Mar neurology. On tizanidine/gabapentin and schedule infusions as scheduled with neurology * HTN-continue home dose of spironolactone * Anxiety continue bupropion/clonazepam * Hypothyroidism continue thyroxine * HLD on statin Brief hospital course Ms. Rodriges is a 69 year old F with a history of MS/anxiety/recurrent UTI/chronic pain who presented to the ER following a fall while she was trying to get off the commode. According to her the Trip to light clamp and closed the bathroom door and while trying to get off she got dizzy and landed on the bathroom hook and fell down. She called her Santino for help and was brought into the ER. Initial w ork-up was consistent with right shoulder fracture/dislocation. Patient underwent reduction in the ER and subsequently orthopedic was consulted. UA revealed pyuria for which she was started on antibiotics. Hospitalist service was consulted At the time of my evaluation patient is fairly anxious and in pain. She is under the effect of opioids drowsy and lethargic but was able to answer most of the questions and endorsed to history as above. She frequently dozes off but awakens response. No family members present. Initial history was obtained from review of prior medical records and from ER physician. Patient endorses to frequent spells of dizziness and visual blurring associated with MS. She denies recurrent falls endorses to general debility from progressing MS. She follows up with Dr. Joseph neurology at [facility] and receives infusion for MS All that patient denies diarrhea, fever, headache, photophobia, chills or cough. 1/2-no overnight events. Patient doing well. Pain is well controlled. Await orthopedic consult. Minimal anxiety. Requesting bedside commode. Reaffirmed that she should call nursing staff and avoid getting out of bed without assistance due to fall risk and subsequent injuries. Case discussed with Dr. Sharma orthopedics. Recommends discharging in returning on Saturday for operative interventions. Patient was discharged home on oral antibiotic for urine tract infection. Patient feels comfortable and requesting to be discharged. She will follow up with orthopedics and will present to the hospital on Saturday for surgery. Date of admission: 06/18/20 00:01 Discharge date: 06/18/20 Primary care physician: Nadia Naik Consults: 06/17/20 Consult to Physician [CONS] Stat Comment: Consulting Provider: Andrade Sanchez Reason For Exam: Physician to Consult Consult to Physician [CONS] Stat Comment: Consulting Provider: Travon Sharma Reason For Exam: Physician to Consult Discharge Meds Discharge Medications Home Medications clonazepam 2 mg PO BID 01/20/15 [History Confirmed 06/18/20 Last Taken 06/17/20 2 mg] ondansetron 4 mg PO TID 01/20/15 [History Confirmed 06/18/20 Last Taken 06/17/20 4 mg] trazodone 50 mg PO DAILY 01/20/15 [History Confirmed 06/18/20 Last Taken 06/16/20 50 mg] atorvastatin 10 mg tablet 10 mg PO QPM tab 02/24/18 [History Confirmed 06/18/20 Last Taken 06/16/20 10 mg] spironolactone 100 mg tablet 100 mg PO QDAY 02/24/18 [History Confirmed 06/18/20 Last Taken 06/17/20 100 mg] [id number] 1 each PO BID 09/13/19 [History Confirmed 06/18/20 Last Taken 06/17/20 1 Tablet] tizanidine 2 mg PO Q8H 09/13/19 [History Confirmed 06/18/20 Last Taken 06/17/20 2 mg] bupropion HCl 150 mg PO DAILY 06/17/20 [History Confirmed 06/18/20 Last Taken 06/17/20 150 mg] gabapentin 400 mg PO Q6 06/17/20 [History Confirmed 06/18/20 Last Taken 06/17/20 400 MG] levothyroxine 150 mcg PO DAILY 06/17/20 [History Confirmed 06/18/20 Last Taken 06/17/20 150 mcg] tamsulosin 0.4 mg PO DAILY 06/17/20 [History Confirmed 06/18/20 Last Taken 06/17/20 0.4 mg] cefdinir 300 mg PO BID #10 cap 06/18/20 [Rx Last Taken Unknown] hydroxyzine HCl 10 - 20 mg PO Q4HP PRN 06/18/20 [History Confirmed 06/18/20 Last Taken 06/17/20 10 mg] COURSE Hospital Course Hospital course: . Discharge diagnosis: . Time Spent with Patient Time attestation: Total time spent providing and/or coordinating discharge services: EXAM Constitutional Vitals: Temp Pulse Resp BP Pulse Ox 99.7 F H 98 H 18 138/77 90 06/18/20 08:00 06/18/20 08:00 06/18/20 08:00 06/18/20 08:00 06/18/20 08:00 Discharge Data Data Completed and Pending Labs on day of discharge: Labs from last 24 hours 06/18/20 06/18/20 06/17/20 05:37 05:37 20:40 WBC 9.1 RBC 3.79 L Hgb 11.3 L Hct 35.1 L POC Hct 37 MCV 92.6 MCH 29.8 MCHC 32.2 RDW 14.9 H Plt Count 143 MPV 12.5 H Neut % (Auto) 61.2 Lymph % (Auto) 22.8 [place] % (Auto) 14.5 H Eos % (Auto) 1.1 Baso % (Auto) 0.4 Lymph # (Auto) 2.07 [place] # (Auto) 1.32 H Eos # (Auto) 0.10 Baso # (Auto) 0.04 Absolute Neutrophils 5.55 POC Sodium 139 Sodium 136 POC Potassium 3.8 Potassium 3.8 POC Chloride 106 Chloride 101 Carbon Dioxide 24 POC Total CO2 24 Anion Gap 11.0 POC BUN 16 BUN 12 Creatinine 0.6 POC Creatinine 0.6 GFR Calculation 94 Glucose 121 H POC Glucose 141 H Uric Acid 3.9 Calcium 8.8 POC WB Ioniz Calcium 1.15 L Phosphorus 2.6 Magnesium 1.7 1.9 Total Bilirubin 0.4 Direct Bilirubin < 0.2 GGT 12 AST 15 ALT 8 Alkaline Phosphatase 106 Lactate Dehydrogenase 186 Total Protein 5.9 Albumin 3.8 Globulin 2.1 L Albumin/Globulin Ratio 1.8 Triglycerides 56 Urine Color Urine Appearance Urine pH Ur Specific [place] Urine Protein Urine Glucose (UA) Urine Ketones Urine Occult Blood Urine Nitrate Urine Bilirubin Urine Urobilinogen Ur Leukocyte Esterase Urine RBC Urine WBC Ur Squamous Epith Cells Urine Bacteria Urine Mucus Ur Culture Indicated? 06/17/20 06/17/20 20:30 20:23 WBC 10.0 RBC 4.38 Hgb 13.3 Hct 40.9 POC Hct MCV 93.4 MCH 30.4 MCHC 32.5 RDW 14.9 H Plt Count 162 MPV 12.5 H Neut % (Auto) 73.5 Lymph % (Auto) 14.4 L [place] % (Auto) 10.4 Eos % (Auto) 1.2 Baso % (Auto) 0.5 Lymph # (Auto) 1.44 L [place] # (Auto) 1.04 H Eos # (Auto) 0.12 Baso # (Auto) 0.05 Absolute Neutrophils 7.32 POC Sodium Sodium POC Potassium Potassium POC Chloride Chloride Carbon Dioxide POC Total CO2 Anion Gap POC BUN BUN Creatinine POC Creatinine GFR Calculation Glucose POC Glucose Uric Acid Calcium POC WB Ioniz Calcium Phosphorus Magnesium Total Bilirubin Direct Bilirubin GGT AST ALT Alkaline Phosphatase Lactate Dehydrogenase Total Protein Albumin Globulin Albumin/Globulin Ratio Triglycerides Urine Color Martha Urine Appearance Clear Urine pH 5.0 Ur Specific [place] 1.018 Urine Protein Negative Urine Glucose (UA) Negative Urine Ketones Negative Urine Occult Blood 0.03 Urine Nitrate Pos A Urine Bilirubin Negative Urine Urobilinogen 2.0 A Ur Leukocyte Esterase Negative Urine RBC 2 Urine WBC 29 H Ur Squamous Epith Cells 2 Urine Bacteria Few A Urine Mucus Few A Ur Culture Indicated? yes Preliminary micro results at discharge 06/17/20 20:30 Urine Culture - Preliminary Urine - Clean Void Mid-Stream Gram negative bacillus Discharge Plan Patient/Caregiver Discharge Instructions Activity: as instructed Diet: Regular Diet Activity Restrictions/Additional Instructions: Follow-up with Dr. Vazquez for orthopedic surgery on Saturday Maintain arm in sling Continue antibiotic for additional 5 days Prescriptions: New cefdinir 300 MG capsule 300 mg PO BID Qty: 10 RF: 0 Continued spironolactone 100 mg tablet 100 mg PO QDAY RF: 0 atorvastatin 10 mg tablet 10 mg PO QPM RF: 0 ondansetron 4 MG tablet,disintegrating 4 mg PO TID RF: 0 trazodone 50 MG tablet 50 mg PO DAILY RF: 0 clonazepam 2 MG tablet,disintegrating 2 mg PO BID RF: 0 [id number]-brii 1 EACH capsule 1 each PO BID RF: 0 tizanidine 2 MG tablet 2 mg PO Q8H RF: 0 gabapentin 400 mg capsule 400 mg PO Q6 RF: 0 tamsulosin 0.4 mg capsule 0.4 mg PO DAILY RF: 0 levothyroxine 150 mcg tablet 150 mcg PO DAILY RF: 0 bupropion HCl 150 mg tablet extended release 24 hr 150 mg PO DAILY RF: 0 hydroxyzine HCl 10 mg Tablet 10 - 20 mg PO Q4HP PRN (Reason: Anxiety) RF: 0 Follow Up Plan Follow up with: Travon Sharma MD [Physician] - Nadia Naik MD [Primary Care Provider] - Patient Disposition: Home, Self-Care Prognosis: Fair Rehab Potential: Fair I certify that the patient requires SNF services: No Overall status at discharge: patient is progressing back to baseline Discharge Orders: Discharge Order (Routine); Ordered 06/18/20 Ordered By: Andrade ALBERTS VTE Deep Vein Thrombosis/Pulmonary Embolism Present on Admission: No
--- NOTE | 2020-06-18 15:02 | Consultation ---
DATE OF CONSULTATION: 06/18/2020 HISTORY OF PRESENT ILLNESS: The patient is a very pleasant 69-year-old female who has a past medical history of MS, anxiety and recurrent UTIs, chronic pain, presented to the emergency room more recently with a fall last night. There was some difficulty trying to get the shoulder to be reduced. She had a greater tuberosity fracture with an anterior dislocation of the humeral head. The patient was then sedated in the emergency room and reduced, admitted to the hospital for UTI. She otherwise has had spells of dizziness that has contributed to this as well. REVIEW OF SYSTEMS: A 10-point review of systems is negative for chest pain, but positive for shortness of breath and limited ambulation because of the risk of falling. PAST MEDICAL HISTORY: She has had many health problems, a list of which include history of thyroid cancer, she has muscular dystrophy, stroke, osteoporosis, congestive heart failure, depression; fracture to the humeral head more recently, anterior dislocation; abrasion, cellulitis, and UTI. She is on medications, which are in the hospitalist's notes. PAST SURGICAL HISTORY: She has had surgeries that have included cholecystectomy, hernia surgery, hysterectomy, left knee replacement, cataract surgery, shoulder surgery in 2011 and a mastectomy in 2014. FAMILY HISTORY: Positive for arthritis. Sister with cancer. A daughter with lupus. SOCIAL HISTORY: Marital Status: She is . Smoking Status: She currently is an everyday smoker. Alcohol Intake: Frequently, 2-3 drinks a day. She denies substance abuse. MEDICATIONS: Quite extensive as noted above. She does take gabapentin, levothyroxine, hydroxyzine. She is on atorvastatin 10 mg, trazodone, ondansetron, clonazepam. ALLERGIES: TO MULTIPLE MEDICATIONS. SULFA, MORPHINE, AND HYDROXYZINE IS LISTED AN ALLERGY, WHICH SHE ACTUALLY TAKES, WHICH IS VERY ODD. PHYSICAL EXAMINATION: VITAL SIGNS: Temperature 100, pulse of 80, respiratory rate 16, blood pressure 180/90, most likely because of pain. Pulse ox 92. GENERAL: She is somewhat anxious. She does have a small abrasion, but normocephalic. She is able to speak without difficulty. EYES: Extraocular movements intact. NECK: Supple. CARDIOVASCULAR: Normal S1, S2. Regular rate and rhythm. LUNGS: Nonlabored respirations today. ABDOMEN: She is nondistended in the abdomen. EXTREMITIES: Right shoulder is in a shoulder immobilizer sling. She moves her fingers without difficulty. Lower extremities: She has no cyanosis, no clubbing and she has a little bit of pitting edema. SKIN: No lacerations or abrasions in the lower extremities. PSYCHIATRIC: She is nondistracted. She is a little anxious and concerned about, but has no hallucinations, able to give an excellent history. LABORATORY DATA: White count is 10,000, hematocrit of 40.9, otherwise unremarkable. She does have a UTI with urine white blood cell count of 29. IMAGING: X-rays of the shoulder showed an anterior dislocation with a greater tuberosity fracture, displaced. Glenoid is intact. Osteopenic bone is present. Then she has a second x-ray that shows a reduction of the shoulder to be adequate with a greater tuberosity fracture still remaining. ASSESSMENT: 1. The patient has right humeral fracture with recent dislocation reduction. This will be managed in a sling until this can be organized to have open reduction and internal fixation. She is high risk for complications because of her medical problems. She is made aware of this as well. 2. Pain management. She is on opioids. 3. Complications. She has also a diagnosis of complicated UTI, which she has been admitted for and seems to be resolving. 4. History of MS and muscular dystrophy. Dr. Rico her neurologist is continuing to follow her for this, but it has made her a high risk to fall and further complications. 5. She is on medications for the anxiety problems as noted. PLAN: Will be to have the patient discharged, readmitted or come in for an outpatient procedure for repair of the greater tuberosity and she could be discharged today. MIRIAM:bhavesh Job ID: [id number] Doc ID: [id number] Travon Sharma MD
[2020-06-18] MEDS ORDERED: SENNOSIDES/DOCUSATE SODIUM 1 TAB TABLET PO SCH (21:00)
[2020-06-18] MEDS ORDERED: ATORVASTATIN 10 MG TABLET PO SCH (21:00)
== END 2020-06-18 13:15 | disposition home or self-care (01) ==
LOC: ED 18:21 → MEDSUR 18:21
PROVIDERS: ADMIT Internal Medicine; ATTEND Internal Medicine